=== PATIENT | male | born 1985 | race Caucasian/White ===

== ENCOUNTER 2017-11-19 15:21 | Inpatient (IN) | payer OTHER ==
[~2017-11-19] VITALS: Ht 170.2 cm; Wt 96.4 kg
[2017-11-19 15:54] VITALS: Ht 170.2 cm; Wt 96.4 kg
[2017-11-19 16:54] LABS: BASOPHIL % 0.7 % (0-2); PLATELET COUNT 211 x10^3mcL (130-400)
[2017-11-19 16:57] LABS: CALCIUM 7.7 mg/dL (8.5-10.1); CARBON DIOXIDE 26.2 mmol/L (21-32); CHLORIDE SERUM 103 mmol/L (98-107); CREATININE SERUM 1.2 mg/dL (0.7-1.3); GFR1 > 60 mL/min; GLUCOSE SERUM 117 mg/dL (74-106); POTASSIUM SERUM 3.3 mmol/L (3.5-5.1); SODIUM SERUM 137 mmol/L (136-145)
[2017-11-19 17:03] LABS: ALBUMIN 3.4 g/dL (3.4-5.0); ALKALINE PHOSPHATASE 81 U/L (46-116); ALT/SGPT 32 U/L (16-63); AST/SGOT 39 U/L (15-37); BILIRUBIN TOTAL 0.56 mg/dL (0.20-1.00); TOTAL PROTEIN, SERUM 7.9 g/dL (6.4-8.2)
[2017-11-19 17:31] LABS: rbc morphology (normal/abnorm) ABNORMAL (NORMAL)
[2017-11-19 18:13] LABS: AMPHETAMINE QUAL UR NONE DETECTED (See below)
[2017-11-19 19:54] LABS: microscopic required? NO
[2017-11-19 20:12] LABS: urine erythrocyte NEGATIVE (NEGATIVE)
[2017-11-19 20:22] VITALS: BP 150/110
[2017-11-19 20:36] LABS: MAGNESIUM 2.1 mg/dL (1.8-2.4); PHOSPHOROUS 1.5 mg/dL (2.5-4.9)
[2017-11-19 20:41] LABS: CHOLESTEROL/HDL RATIO 2.1; T3 TOTAL 1.06 ng/mL
[2017-11-19 20:43] LABS: FREE T4 0.92 ng/dL (0.76-1.46); FREE THYROXINE INDEX 2.8 ug/dL (1.4-4.5); T4(THYROXINE) 7.5 ug/dL (4.7-13.3)
[2017-11-19] MEDS ORDERED: ASPIRIN ADULT L81 M3 PO (21:39)
[2017-11-19] MEDS ORDERED: [UNRECOGNIZED DRUG - OTHER] PO (21:40)
[2017-11-19] MEDS ORDERED: FLUOXETINE HYDR20 M2 PO (21:41)
[2017-11-19] MEDS ORDERED: METOPROLOL TART25 M1 PO (21:41)
[2017-11-19] MEDS ORDERED: NEU300 PO (21:42)
[2017-11-19] MEDS ORDERED: GABAPENTIN600 M1 PO ×2 (21:42→21:43)
[2017-11-19] MEDS ORDERED: ELIQUIS5 MG PO (21:43)
[2017-11-19] MEDS ORDERED: HYDROXYZINE HYD25 MG PO (21:43)
[2017-11-19 22:54] LABS: RED BLOOD CELLS 5.06 M/mm3 (4.52-5.90)
[2017-11-19 22:55] VITALS: BP 122/88
[2017-11-19 23:35] LABS: IRON 34 ug/dL (65-170); TOTAL IRON BINDING CAPACITY 331 ug/dL (250-450)
[2017-11-20 04:10] LABS: PLATELET COUNT 192 x10^3mcL (130-400)
[2017-11-20 04:33] VITALS: BP 141/95
[2017-11-20 04:37] LABS: BASOPHIL % 0.3 % (0-2)
[2017-11-20 04:42] LABS: RED CELL DISTRIBUTION WIDTH 22.1 % (11.5-14.5)
[2017-11-20 05:52] LABS: rbc morphology (normal/abnorm) ABNORMAL (NORMAL)
[2017-11-20 06:34] LABS: CALCIUM 6.9 mg/dL (8.5-10.1); CARBON DIOXIDE 25.2 mmol/L (21-32); CHLORIDE SERUM 107 mmol/L (98-107); CREATININE SERUM 0.9 mg/dL (0.7-1.3); GFR1 > 60 mL/min; GLUCOSE SERUM 96 mg/dL (74-106); MAGNESIUM 2.2 mg/dL (1.8-2.4); PHOSPHOROUS 3.2 mg/dL (2.5-4.9); POTASSIUM SERUM 3.8 mmol/L (3.5-5.1); SODIUM SERUM 141 mmol/L (136-145)
[2017-11-20 07:20] LABS: BASOPHIL % 1.3 % (0-2); PLATELET COUNT 186 x10^3mcL (130-400)
[2017-11-20 07:24] LABS: RED CELL DISTRIBUTION WIDTH 22.3 % (11.5-14.5); rbc morphology (normal/abnorm) ABNORMAL (NORMAL)
[2017-11-20 09:19] VITALS: BP 140/97
[2017-11-20 13:51] VITALS: BP 136/94
[2017-11-20 17:48] VITALS: BP 140/95
[2017-11-20 20:28] VITALS: BP 150/98
[2017-11-21 04:51] VITALS: BP 159/95
[2017-11-21 09:42] VITALS: BP 143/98
[2017-11-21 12:47] VITALS: BP 153/91
[2017-11-21 16:55] VITALS: BP 106/58; BP 143/106
[2017-11-21 20:42] VITALS: BP 150/104
[2017-11-21 23:05] VITALS: BP 154/110
[2017-11-22 01:05] VITALS: BP 146/82
[2017-11-22 05:24] VITALS: BP 117/85
[2017-11-22 07:09] LABS: CALCIUM 8.4 mg/dL (8.5-10.1); CARBON DIOXIDE 22.9 mmol/L (21-32); CHLORIDE SERUM 102 mmol/L (98-107); GFR1 > 60 mL/min; GLUCOSE SERUM 75 mg/dL (74-106); MAGNESIUM 1.9 mg/dL (1.8-2.4); PHOSPHOROUS 2.3 mg/dL (2.5-4.9); POTASSIUM SERUM 3.9 mmol/L (3.5-5.1); SODIUM SERUM 136 mmol/L (136-145)
[2017-11-22 07:52] LABS: BASOPHIL % 0.8 % (0-2); PLATELET COUNT 177 x10^3mcL (130-400); RED CELL DISTRIBUTION WIDTH 21.3 % (11.5-14.5)
[2017-11-22] MEDS ORDERED: GOOD SENSE OMEP20 MG PO (12:45)
[2017-11-22] MEDS ORDERED: NATURAL IRON65 MG PO (12:46)
[2017-11-22] MEDS ORDERED: COLACE100 MG PO (12:47)
[2017-11-22] MEDS ORDERED: ATIVAN0.5 M1 PO (13:19)
[2017-11-22 13:31] VITALS: BP 110/82
== END 2017-11-22 15:56 | disposition home or self-care (01) | DRG 253 ==
LOC: ED 15:21 → DU 19:08 → MU 19:08 → DU 20:11 → MU 11-21 21:00
PROVIDERS: Family Medicine; Internal Medicine; Internal Medicine Gastroenterology; Specialist
PROC: 0DB68ZX Excision of Stomach, Via Natural or Artificial Opening Endoscopic, Diagnostic (ICD-10-PCS; principal; 2017-11-20 10:00)
PROC: 0DJD8ZZ Inspection of Lower Intestinal Tract, Via Natural or Artificial Opening Endoscopic (ICD-10-PCS; 2017-11-22)
PROC: 0DJ08ZZ Inspection of Upper Intestinal Tract, Via Natural or Artificial Opening Endoscopic (ICD-10-PCS; 2017-11-22)
DX: K92.2 Gastrointestinal hemorrhage, unspecified (principal); G65.0 Sequelae of Guillain-Barre syndrome; E83.51 Hypocalcemia; D50.0 Iron deficiency anemia secondary to blood loss (chronic); F10.129 Alcohol abuse with intoxication, unspecified; I25.10 Atherosclerotic heart disease of native coronary artery without angina pectoris; K22.6 Gastro-esophageal laceration-hemorrhage syndrome; I25.2 Old myocardial infarction; R09.02 Hypoxemia; K44.9 Diaphragmatic hernia without obstruction or gangrene; Z79.82 Long term (current) use of aspirin; Z68.31 Body mass index [BMI] 31.0-31.9, adult; Z87.891 Personal history of nicotine dependence; Z79.84 Long term (current) use of oral hypoglycemic drugs; Z86.73 Personal history of transient ischemic attack (TIA), and cerebral infarction without residual deficits; Y90.9 Presence of alcohol in blood, level not specified
CPT/HCPCS: 36600; 43235; 45378; 83880; 84439; 85300; 85378; A9698; C9113; G0480; J1200; J1610; J2060; J2250; J2270; J2310; J2405; J2916; J3010; J3411; J3475; J3480; J3490; J7030; Q0092; Q9967

== ENCOUNTER 2017-12-12 15:00 | Emergency (ER) | payer OTHER ==
[~2017-12-12] VITALS: Ht 170.2 cm; Wt 95.3 kg
[~2017-12-12 15:00] MED LIST: ASPIRIN ADULT L81 M3 PO; ATIVAN0.5 M1 PO; COLACE100 MG PO; ELIQUIS5 MG PO; FLUOXETINE HYDR20 M2 PO; GABAPENTIN600 M1 PO; GOOD SENSE OMEP20 MG PO; HYDROXYZINE HYD25 MG PO; METOPROLOL TART25 M1 PO; NATURAL IRON65 MG PO; NEU300 PO; [UNRECOGNIZED DRUG - OTHER] PO
[2017-12-12 15:12] VITALS: Ht 170.2 cm; Wt 95.3 kg
[2017-12-12 15:22] VITALS: BP 120/101
== END 2017-12-12 15:22 | disposition other institution (70) ==
LOC: ED 15:00
DX: Z02.89 Encounter for other administrative examinations (principal)

== ENCOUNTER 2017-12-12 17:48 | Emergency (ER) | payer OTHER ==
[~2017-12-12] VITALS: Ht 170.2 cm; Wt 95.3 kg
[2017-12-12 17:58] VITALS: Ht 170.2 cm; Wt 95.3 kg
[2017-12-12 18:40] LABS: BASOPHIL % 0.7 % (0-2); PLATELET COUNT 391 x10^3mcL (130-400)
[2017-12-12 18:46] LABS: RED CELL DISTRIBUTION WIDTH 28.5 % (11.5-14.5)
[2017-12-12 18:50] LABS: AMPHETAMINE QUAL UR NONE DETECTED (See below)
[2017-12-12 18:53] LABS: CALCIUM 8.3 mg/dL (8.5-10.1); CARBON DIOXIDE 26.1 mmol/L (21-32); CHLORIDE SERUM 104 mmol/L (98-107); CREATININE SERUM 1.1 mg/dL (0.7-1.3); GFR1 > 60 mL/min; GLUCOSE SERUM 112 mg/dL (74-106); POTASSIUM SERUM 3.5 mmol/L (3.5-5.1); SODIUM SERUM 138 mmol/L (136-145)
[2017-12-12 19:08] LABS: ALBUMIN 3.9 g/dL (3.4-5.0); ALKALINE PHOSPHATASE 95 U/L (46-116); ALT/SGPT 85 U/L (16-63); AST/SGOT 59 U/L (15-37); BILIRUBIN TOTAL 0.5 mg/dL (0.20-1.00); TOTAL PROTEIN, SERUM 8.6 g/dL (6.4-8.2)
[2017-12-12 19:20] VITALS: BP 133/94
== END 2017-12-12 19:20 | disposition other institution (70) ==
LOC: ED 17:48
PROVIDERS: Emergency Medicine
DX: T51.91XA Toxic effect of unspecified alcohol, accidental (unintentional), initial encounter (principal); R07.89 Other chest pain; Z86.73 Personal history of transient ischemic attack (TIA), and cerebral infarction without residual deficits; Y92.89 Other specified places as the place of occurrence of the external cause
CPT/HCPCS: 36415; 83880; G0480

== ENCOUNTER 2017-12-12 17:48 | Emergency (ER) | payer OTHER | END 2017-12-12 19:20 | disposition other institution (70) | LOC: ED 17:48 | DX: Z02.89 Encounter for other administrative examinations (principal) ==

== ENCOUNTER 2018-01-13 13:16 | Emergency (ER) | payer OTHER ==
[~2018-01-13] VITALS: Ht 170.2 cm; Wt 95.3 kg
[2018-01-13 13:24] VITALS: Ht 170.2 cm; Wt 95.3 kg
[2018-01-13 13:48] LABS: BASOPHIL % 0.3 % (0-2); PLATELET COUNT 294 x10^3mcL (130-400)
[2018-01-13 13:51] LABS: RED CELL DISTRIBUTION WIDTH 24.2 % (11.5-14.5)
[2018-01-13 14:03] LABS: ALBUMIN 3.8 g/dL (3.4-5.0); ALKALINE PHOSPHATASE 90 U/L (46-116); ALT/SGPT 31 U/L (16-63); AST/SGOT 35 U/L (15-37); CARBON DIOXIDE 22.6 mmol/L (21-32); CHLORIDE SERUM 104 mmol/L (98-107); CREATININE SERUM 1.1 mg/dL (0.7-1.3); GFR1 > 60 mL/min; GLUCOSE SERUM 111 mg/dL (74-106); LIPASE 80 IU/L (73-393); POTASSIUM SERUM 3.4 mmol/L (3.5-5.1); SODIUM SERUM 139 mmol/L (136-145)
[2018-01-13 17:16] VITALS: BP 122/65
== END 2018-01-13 17:16 | disposition home or self-care (01) ==
LOC: ED 13:16
PROVIDERS: Emergency Medicine
DX: R07.89 Other chest pain (principal); K29.20 Alcoholic gastritis without bleeding; K46.9 Unspecified abdominal hernia without obstruction or gangrene; Z95.5 Presence of coronary angioplasty implant and graft
CPT/HCPCS: G0480; J1885; J2550; J3480; J3490; J7030; Q0092

== ENCOUNTER 2019-03-26 18:43 | Emergency (ER) | payer OTHER ==
[~2019-03-26] VITALS: Ht 170.2 cm; Wt 80.7 kg
[2019-03-26 19:35] VITALS: Ht 170.2 cm; Wt 80.7 kg
[2019-03-27 01:26] VITALS: BP 124/88
== END 2019-03-27 01:26 | disposition home or self-care (01) ==
LOC: ED 18:43
DX: L02.211 Cutaneous abscess of abdominal wall (principal); L02.415 Cutaneous abscess of right lower limb; L02.31 Cutaneous abscess of buttock; I10 Essential (primary) hypertension; Z86.73 Personal history of transient ischemic attack (TIA), and cerebral infarction without residual deficits
CPT/HCPCS: J1885; J2001; J2543; J3370

== ENCOUNTER 2019-04-06 00:52 | Emergency (ER) | payer OTHER | END 2019-04-06 02:15 | disposition other institution (70) | LOC: ED 00:52 | DX: Z02.89 Encounter for other administrative examinations (principal) ==

== ENCOUNTER 2019-04-06 00:52 | Emergency (ER) | payer OTHER ==
[~2019-04-06] VITALS: Ht 170.2 cm; Wt 79.4 kg
[2019-04-06 00:53] VITALS: Ht 170.2 cm; Wt 79.4 kg
[2019-04-06 02:15] VITALS: BP 143/89
== END 2019-04-06 02:15 | disposition other institution (70) ==
LOC: ED 00:52
DX: L02.415 Cutaneous abscess of right lower limb (principal); I10 Essential (primary) hypertension; F15.10 Other stimulant abuse, uncomplicated; Z86.73 Personal history of transient ischemic attack (TIA), and cerebral infarction without residual deficits
CPT/HCPCS: J1885

== ENCOUNTER 2020-02-10 09:24 | Emergency (ER) | payer MEDICAID ==
[~2020-02-10] VITALS: Ht 170.2 cm; Wt 76.7 kg
[2020-02-10 09:32] VITALS: BP 135/87; Ht 170.2 cm; Wt 76.7 kg
== END 2020-02-10 10:00 | disposition home or self-care (01) ==
LOC: ED 09:24
DX: S71.002A Unspecified open wound, left hip, initial encounter (principal); L08.9 Local infection of the skin and subcutaneous tissue, unspecified; I10 Essential (primary) hypertension; Z86.73 Personal history of transient ischemic attack (TIA), and cerebral infarction without residual deficits; X58.XXXA Exposure to other specified factors, initial encounter; Y93.89 Activity, other specified; Y92.89 Other specified places as the place of occurrence of the external cause; Y99.8 Other external cause status